=== PATIENT | male | born 1985 | race Caucasian/White ===

== ENCOUNTER 2018-05-21 14:14 | Emergency (ER) | payer BC ==
--- NOTE | 2018-05-21 15:28 | EDM.PDOC ---
ED HPI GENERAL MEDICAL PROBLEM - General Chief Complaint: General Stated Complaint: TOP LT TOOTH PAIN Time Seen by Provider: 05/21/18 15:08 Source of Information: Reports: Patient History Limitations: Reports: No Limitations - History of Present Illness INITIAL COMMENTS - FREE TEXT/NARRATIVE: Mario presents today for complaints of left upper dental pain for 2 weeks. He has tried use of ibuprofen 400mg without much help. Left Upper Tooth/Teeth Pain Score (Numeric/FACES): 2 - Related Data Allergies Allergy/AdvReac Type Severity Reaction Status Date / Time No Known Allergies Allergy Verified 05/21/18 14:27 Home Meds: Home Meds NK [No Known Home Meds] 05/21/18 [History] Past Medical History - Infectious Disease History Infectious Disease History: Reports: Chicken Pox - Past Surgical History Head Surgeries/Procedures: Reports: None Social & Family History - Tobacco Use Smoking Status *Q: Current Every Day Smoker Years of Tobacco use: 16 Packs/Tins Daily: 0.5 Used Tobacco, but Quit: No Second Hand Smoke Exposure: Yes - Caffeine Use Caffeine Use: Reports: None - Recreational Drug Use Recreational Drug Use: No ED ROS GENERAL - Review of Systems Review Of Systems: See Below Constitutional: Denies: Fever, Chills HEENT: Reports: Dental Pain. Denies: Ear Pain, Rhinitis, Sinus Problem, Throat Pain, Throat Swelling Respiratory: Reports: No Symptoms Cardiovascular: Reports: No Symptoms Endocrine: Reports: No Symptoms GI/Abdominal: Reports: No Symptoms : Reports: No Symptoms Musculoskeletal: Reports: No Symptoms Skin: Reports: No Symptoms Neurological: Reports: No Symptoms Psychiatric: Reports: No Symptoms Hematologic/Lymphatic: Reports: No Symptoms Immunologic: Reports: No Symptoms ED EXAM, GENERAL - Physical Exam Exam: See Below Free Text/Narrative:: Mario presents with complaints of dental pain for the past two weeks. He reports two broken teeth as the site of pain. Exam Limited By: No Limitations General Appearance: Alert, WD/WN, No Apparent Distress Eye Exam: Bilateral Eye: Normal Inspection, PERRL Ears: Normal External Exam, Normal Canal, Hearing Grossly Normal, Normal TMs Ear Exam: Bilateral Ear: Auricle Normal, Canal Normal, TM normal Nose: Normal Inspection, Normal Mucosa, No Blood Throat/Mouth: Normal Lips, Normal Voice, No Airway Compromise, Other (Fractured #12,13 with visible dental pulp, erythema at gum line, no purulent discharge. pain with palpation. ) Head: Atraumatic, Normocephalic. No: Facial Swelling, Facial Tenderness Neck: Normal Inspection, Supple, Non-Tender, Full Range of Motion. No: Lymphadenopathy (R), Lymphadenopathy (L) Respiratory/Chest: No Respiratory Distress, Lungs Clear, Normal Breath Sounds, No Accessory Muscle Use, Chest Non-Tender Cardiovascular: Normal Peripheral Pulses, Regular Rate, Rhythm, No Edema, No Murmur, No Rub Neurological: Alert, Oriented, Normal Cognition, Normal Gait, No Motor/Sensory Deficits Psychiatric: Normal Affect, Normal Mood Skin Exam: Warm, Dry, Intact, Normal Color, No Rash Lymphatic: No Adenopathy Course - Vital Signs Last Recorded V/S: Last Vital Signs Temp 35.5 C 05/21/18 14:29 Pulse 82 05/21/18 14:29 Resp 16 05/21/18 14:29 BP 133/88 05/21/18 14:29 Pulse Ox 96 05/21/18 14:29 Departure - Departure Time of Disposition: 15:25 Disposition: Home, Self-Care 01 Condition: Good Clinical Impression: Pain, dental, Dental abscess - Discharge Information Instructions: Dental Abscess, [id number] Referrals: PCP,None [Primary Care Provider] - Forms: ED Department Discharge Additional Instructions: You have been evaluated and treated for dental pain/abscess. You can take ibuprofen (advil) 800mg by mouth three times a day as needed for pain. You can also take acetaminophen (tylenol) 1000mg by mouth three times a day as needed for pain. You can take penicillin VK 500mg by mouth four times a day for 10 days for infection. Prescription was telephoned in to [facility] for you. Follow up with your dentist as soon as possible. Return for worsening, issues or concerns. - Assessment/Plan Assessment:: Dental pain Dental abscess Plan: Patient evaluated and treated for dental pain/abscess. He can take ibuprofen (advil) 800mg by mouth three times a day as needed for pain. He can also take acetaminophen (tylenol) 1000mg by mouth three times a day as needed for pain. He can take penicillin VK 500mg by mouth four times a day for 10 days for infection. Follow up with dentist as soon as possible. Return for worsening, issues or concerns.
== END 2018-05-21 15:42 | disposition home or self-care (01) ==
LOC: JP.ED 14:14
DX: K04.7 Periapical abscess without sinus (principal); F17.210 Nicotine dependence, cigarettes, uncomplicated
CPT/HCPCS: 99285-25